=== PATIENT | female | born 1945 ===

== ENCOUNTER 2023-08-10 12:28 | Emergency (ER) | payer MEDICARE ==
[~2023-08-10] VITALS: Ht 154.9 cm; Wt 63.6 kg
[2023-08-10 12:30] VITALS: TEMP 98.2
[2023-08-10] MEDS ORDERED: QUET100T PO (12:33)
[2023-08-10] MEDS ORDERED: TELM40 PO (12:33)
[2023-08-10] MEDS ORDERED: METF-1211 PO (12:33)
[2023-08-10] MEDS ORDERED: ATOR20TA PO (12:33)
[2023-08-10] MEDS ORDERED: CHOL200059 PO (12:33)
[2023-08-10] MEDS ORDERED: ALBU18HF12 IH (14:57)
[2023-08-10] MEDS ORDERED: BUDE10.32 IH (14:57)
[2023-08-10 15:11] VITALS: PULSE 96; RESP 18; O2SAT 99
[2023-08-10] MEDS: ALBUTEROL SULFATE HFA 90 MCG/PUFF 8 GM INHALER IH ONE (15:11)
[2023-08-10 15:29] VITALS: BP 126/68; PULSE 91; RESP 18
== END 2023-08-10 16:43 | disposition home or self-care (01) ==
LOC: EMS 12:28
DX: S16.1XXA Strain of muscle, fascia and tendon at neck level, initial encounter (principal); I10 Essential (primary) hypertension; J45.909 Unspecified asthma, uncomplicated; W18.49XA Other slipping, tripping and stumbling without falling, initial encounter; Y93.89 Activity, other specified; Y92.89 Other specified places as the place of occurrence of the external cause; Y99.8 Other external cause status
CPT/HCPCS: 99284; 70450; 72125; J3535